=== PATIENT | female | born 1980 | race Caucasian/White ===

== ENCOUNTER 2020-09-23 14:23 | Outpatient (REF) | payer OTHER, SELFPAY | END 2020-09-23 14:24 | disposition home or self-care (01) | LOC: HO.LAB 14:23 | PROVIDERS: Visit Provider Internal Medicine | DX: Z20.828 Contact with and (suspected) exposure to other viral communicable diseases (principal) | CPT/HCPCS: C9803; U0003 ==

== ENCOUNTER 2025-02-03 20:31 | Emergency (ER) | payer OTHER, SELFPAY ==
--- NOTE | ~2025-02-03 | XR_ITS ---
CLINICAL HISTORY: fall, pain 3 view right elbow Comparison: None Findings: No displaced fracture. 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 No dislocations. Small effusion present. No large effusion. No radiopaque retained foreign body. IMPRESSION: No acute fracture or dislocation of the right elbow. This document has been electronically signed by: David Storm MD on 02/03/2025 21:05:42
[2025-02-03 20:36] VITALS: BP 166/100; PULSE 97; RESP 18; TEMP 36.9; O2SAT 100; BMI 29.9
--- NOTE | 2025-02-03 20:36 | ED_ITS ---
HPI - Extremity Injury (Upper) General Chief Complaint: Extremity Injury, Upper Stated Complaint: rt elbow injury/fall Time Seen by Provider: 02/03/25 22:02 Source: patient Mode of arrival: ambulatory Limitations: no limitations History of Present Illness ED Provider: Dr. Meenakshi Deluca HPI narrative: patient comes to the emergency room complaining of right elbow pain. According to the patient, she was shopping at [employer]. Seems that patient slipped on her custodial and landed hard on her right elbow. Patient denies striking her head, denies being on blood thinners, no loss of consciousness, no other injuries. Patient complaining of localized right elbow pain Related Data Previous Rx's ?Medication ?Instructions ?Recorded acetaminophen 500 mg tablet 500 mg PO Q6H PRN fever or pain 02/03/25 #20 tabs ibuprofen 600 mg tablet 600 mg PO Q8H PRN pain #20 tabs 02/03/25 Allergies Allergy/AdvReac Type Severity Reaction Status Date / Time latex Allergy Itching Verified 02/03/25 20:37 Review of Systems Review of Systems: Constitutional : No Weight loss, No Fever, No Chills, No Night Sweats, No Fatigue, No Malaise ENT/Mouth : No Hearing loss, No Ear Pain, No Nasal Congestion, No Sinus Pain, No Hoarseness, No sore throat, No Rhinorrhea, No Swallowing Difficulty Eyes: No Eye Pain, No Swelling, No Redness, No Foreign Body, No Discharge, No Vision Changes Cardiovascular : No Chest Pain, No SOB, No Dyspnea on Exertion, No Orthopnea, No Edema, No Palpitations Respiratory : No Cough, No Sputum, No Wheezing, No Smoke Exposure, No Dyspnea Gastrointestinal : No Nausea, No Vomiting, No Diarrhea, No Constipation, No abdominal Pain, No Hematochezia, No Melena Genitourinary : no irregular bleeding, No Dysuria, No Urinary Frequency, No Hematuria, No Urinary Incontinence, No Urgency, No Flank Pain, No Urinary Flow Changes, No Hesitancy Musculoskeletal : complaining of right elbow pain, No Myalgias, No Joint Swelling Skin : No Skin Lesions, No rash Neuro : No Weakness, No Numbness, No Paresthesias, No Loss of Consciousness, No Dizziness, No Headache Psych : No Anxiety/Panic, No Depression, No SI/HI/AH/VH, No Social Issues, Heme/Lymph: No Bruising, No Bleeding,No Lymphadenopathy Endocrine : No Polyuria, No Polydipsia, No Temperature Intolerance Physical Exam Vital Signs: Vital Signs: Last Vital Signs Temp 98.5 F 02/03/25 20:36 Pulse 97 02/03/25 20:36 Resp 18 02/03/25 20:36 BP 166/100 H 02/03/25 20:36 Pulse Ox 100 02/03/25 20:36 O2 Del Method Room Air 02/03/25 20:36 BMI result Body Mass Index 29.9 Const: Other: Appearance: Alert. Oriented X3. No acute distress. Eyes: Pupils equal, round and reactive to light. ENT: Pharynx normal. Neck: Normal inspection. Neck supple. No lymph nodes noted. No crepitus CVS: Normal heart rate and rhythm. Pulses normal. Normal S1 and S2 Respiratory: No respiratory distress. Breath sounds normal. No Wheezing. No rales Abdomen: Soft and nontender. No rigidity. No distention. Skin: Skin warm and dry. Normal skin color. Normal skin turgor. Extremities: No lower extremity edema. No Lacerations. No Rash. Right elbow within normal limits, normal range of motion with flexion and extension, no swelling, no erythema, no obvious deformity. No obvious effusion. Neuro: Oriented X 3. No motor deficit. No sensory deficit. Moving all extremities. No slurred speech. CN 2 through 12 grossly intact Psych: calm, cooperative, normal affect Course Course Course Narrative: This is an RME performed by Dominique Bernard CNP: Additional HPI, ROS, PE not included below will be deferred to primary provider. Patient is a 45 old female presents emergency department for evaluation sustained a mechanical slip and fall while in [employer]. Fell landing onto the right side primarily point of impact to the right elbow with severe pain, held in > 90 degree flexion as point of most comfort. Pain exacerbates with movement. Pain radiates to the hand, no numbness tingling or cold sensation. Endorses mild pain to the right hip it is ambulatory without antalgic gait, very mild pain. Denies head strike, no use of anticoagulants Plan: XR Medical Decision Making Medical Decision Making MDM Narrative: X-rays: No fracture, normal alignment Independent Interpretation I performed an independent interpretation of an: Plain X-Ray Radiology Impression Discussion of test interpretation with radiology: I have reviewed the radiologist's reading. Radiologist Impression: No displaced fracture. 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 No dislocations. Small effusion present. No large effusion. No radiopaque retained foreign body. IMPRESSION: No acute fracture or dislocation of the right elbow. Discharge Plan Discharge Clinical Impression: Contusion of elbow Patient Disposition: Home, Self-Care Instructions: Contusion in Adults (ED) Additional Instructions: Please follow-up with your primary care physician tomorrow. If you have any worsening or new symptoms, please return to the emergency room or call 911 Prescriptions: New ibuprofen 600 mg tablet 600 mg PO Q8H PRN (Reason: pain) Qty: 20 0RF acetaminophen 500 mg tablet 500 mg PO Q6H PRN (Reason: fever or pain) Qty: 20 0RF Print Language: Khmer
[2025-02-03] MEDS: Ibuprofen 600 MG TABLET PO (22:24)
[2025-02-03] MEDS: Acetaminophen 325 MG TABLET 650 MG PO (22:24)
[2025-02-03 22:25] VITALS: BP 145/89; PULSE 88; RESP 16; O2SAT 98
[2025-02-03 22:27] VITALS: BP 145/89; PULSE 88; RESP 16; TEMP -17.7; TEMP 0; O2SAT 98
== END 2025-02-03 22:27 | disposition home or self-care (01) ==
PROVIDERS: Emergency Provider Emergency Medicine; PCP Internal Medicine
DX: S50.01XA Contusion of right elbow, initial encounter (principal); W01.0XXA Fall on same level from slipping, tripping and stumbling without subsequent striking against object, initial encounter; M25.521 Pain in right elbow; Y93.89 Activity, other specified; Y92.512 Supermarket, store or market as the place of occurrence of the external cause; Y99.8 Other external cause status
CPT/HCPCS: 73070; 99283

== ENCOUNTER → 2025-02-03 20:37 | Outpatient (BNV) | payer OTHER, SELFPAY | PROVIDERS: PCP Internal Medicine; Visit Provider Radiology Neuroradiology | DX: M25.521 Pain in right elbow (principal); W19.XXXA Unspecified fall, initial encounter | CPT/HCPCS: 73070 ==